=== PATIENT | female | born 2000 | race Caucasian/White ===

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

== ENCOUNTER → 2021-05-04 | Outpatient (CLI) | payer BC ==
--- NOTE | 2021-05-04 17:44 | Diagnostic Imaging Report ---
PROCEDURE: CT abdomen and pelvis without contrast. TECHNIQUE: Multiple contiguous axial images were obtained through the abdomen and pelvis without the use of intravenous contrast. Auto Exposure Controls were utilized during the CT exam to meet ALARA standards for radiation dose reduction. INDICATION: Left flank pain and hematuria. Patient does have history of kidney stones. Correlation is made with prior CT from 09/07/2019. FINDINGS: The lung bases are clear. The liver and gallbladder are unremarkable. Pancreas and spleen are unremarkable. No adrenal mass is detected. There are punctate nonobstructing calculi within both kidneys. No definite ureteral calculi are detected. There is no hydronephrosis. Bladder is decompressed but no definite bladder calculi are identified. Aorta is nonaneurysmal. Bowel loops are normal caliber. There is no obstruction. No free fluid is identified. No inflammatory changes are seen. IMPRESSION: Bilateral nonobstructing nephrolithiasis. No definite ureteral calculi or hydronephrosis is detected. Dictated by: Dictated on workstation # [id number]
--- NOTE | 2021-05-04 17:46 | Diagnostic Imaging Report ---
INDICATION: Left flank pain and microhematuria. TIME OF EXAM: 2:56 p.m. FINDINGS: The bowel gas pattern is unremarkable. Punctate calculi within both kidneys noted on CT are not well visualized by plain film. Portions of the renal shadows are obscured by bowel gas. No free air is identified. IMPRESSION: Tiny bilateral renal calculi noted on CT are not well visualized by plain film. Dictated by: Dictated on workstation # [id number]
== END ==
LOC: RAD 14:45
PROVIDERS: ATTEND Urology
DX: N20.0 Calculus of kidney (principal)
CPT/HCPCS: 74018; 74176

== ENCOUNTER → 2021-05-26 | Outpatient (CLI) | payer BC ==
--- NOTE | 2021-05-26 13:49 | Diagnostic Imaging Report ---
PROCEDURE: CT abdomen and pelvis without contrast. TECHNIQUE: Multiple contiguous axial images were obtained through the abdomen and pelvis without the use of intravenous contrast. Auto Exposure Controls were utilized during the CT exam to meet ALARA standards for radiation dose reduction. INDICATION: Bilateral flank pain. Patient does have history of kidney stones. Correlation is made with prior CT from 05/04/2021. FINDINGS: The lung bases remain clear. The liver, gallbladder, pancreas and spleen are unremarkable. No adrenal mass is identified. Punctate nonobstructing calculi in both kidneys are again noted. There is no hydronephrosis. No ureteral or bladder calculi are detected. Aorta is unremarkable. Bowel loops are normal caliber. There is no ascites. No inflammatory changes are seen. IMPRESSION: Punctate bilateral nonobstructing nephrolithiasis, similar to examination from 05/04/2021. No definite ureteral calculi or hydronephrosis is identified. Dictated by: Dictated on workstation # [id number]
== END ==
LOC: RAD 13:19
PROVIDERS: ATTEND Urology
DX: N20.0 Calculus of kidney (principal)
CPT/HCPCS: 74176

== ENCOUNTER → 2021-07-19 | Outpatient (CLI) | payer BC ==
--- NOTE | 2021-07-19 10:30 | Diagnostic Imaging Report ---
INDICATION: Back pain. TIME OF EXAM: 9:57 AM 3 views of the lumbar spine were obtained. Curvature and alignment is normal. Vertebral body heights are well-maintained. There is a limbus vertebrae at L5. No acute fracture or subluxation is seen. Disc spaces are well-maintained. IMPRESSION: No acute bony abnormality is detected. Dictated by: Dictated on workstation # [id number]
--- NOTE | 2021-07-19 10:30 | Diagnostic Imaging Report ---
INDICATION: Back pain. TIME OF EXAM: 9:57 AM. FINDINGS: Three views of the thoracic spine were obtained. There is normal thoracic kyphotic curvature. Very slight lower thoracic right convexity scoliotic curvature is noted. No vertebral body anomaly is seen. The pedicles appear intact. The paraspinous line is intact. No fractures are seen. IMPRESSION: Very slight right convexity thoracic scoliotic curvature. No acute bony abnormality is detected. Dictated by: Dictated on workstation # [id number]
== END ==
LOC: RAD 09:08
PROVIDERS: ATTEND Nurse Practitioner Family
DX: M54.50 Low back pain, unspecified (principal); M54.6 Pain in thoracic spine
CPT/HCPCS: 72072; 72100

== ENCOUNTER → 2021-11-16 | Outpatient (CLI) | payer BC ==
[2021-11-16 09:13] LABS: HEMATOCRIT 43 % (35-52); HEMOGLOBIN 14.7 g/dL (11.5-16.0); MEAN CORPUSCULAR HEMOGLOBIN 29 pg (25-34); MEAN CORPUSCULAR HGB CONC 34 g/dL (32-36); MEAN CORPUSCULAR VOLUME 87 fL (80-99); PLATELET COUNT 200 10^3/uL (130-400); WHITE BLOOD COUNT 4.7 10^3/uL (4.3-11.0)
[2021-11-16 09:36] LABS: ALBUMIN 4.4 GM/DL (3.2-4.5); BILIRUBIN,TOTAL 1.7 MG/DL (0.1-1.0); CALCIUM 9.9 MG/DL (8.5-10.1); CREATININE SERUM 0.84 MG/DL (0.60-1.30); POTASSIUM 3.6 MMOL/L (3.6-5.0); TOTAL PROTEIN 7.2 GM/DL (6.4-8.2)
== END ==
LOC: CARD 08:46
PROVIDERS: ATTEND Nurse Practitioner Family
DX: R00.2 Palpitations (principal); R55 Syncope and collapse; R00.0 Tachycardia, unspecified
CPT/HCPCS: 36415; 80053; 82550; 85027; 85379; 93005